=== PATIENT | male | born 1955 | race Caucasian/White ===

== ENCOUNTER 2018-01-12 14:29 | Outpatient (CLI) | payer MEDICARE ==
--- NOTE | 2018-01-12 21:10 | RAD ---
RIGHT RIBS 01/12/18 No fracture was appreciated on any of the films. The ribs appear intact. The adjacent lung is clear a nd fully inflated. No effusions are present. IMPRESSION: No acute bony findings. POS: HOME
== END 2018-01-12 14:30 | disposition home or self-care (01) ==
LOC: BURRAD 14:29
PROVIDERS: ATTEND Family Medicine
DX: R07.81 Pleurodynia (principal)

== ENCOUNTER 2020-11-18 16:15 | Emergency (ER) | payer MEDICARE ==
[2020-11-18 16:56] LABS: #Basophils 0.3 thou/uL (0.0-0.2); #Eosinphils 1.5 thou/uL (0.0-0.7); #Lymphocytes 1.9 thou/uL (1.20-3.40); #Monocytes 1.2 thou/uL (0.11-0.59); #Neutrophils 5.7 thou/uL (1.40-6.50); %Basophils 2.4 % (0.0-1.0); %Eosinophils 14.2 % (0.0-10.0); %Lymphocytes 18.2 % (21.0-51.0); %Monocytes 11.3 % (0.0-10.0); %Neutrophils 53.9 % (42.0-75.0); Hemoglobin 15.2 g/dL (14.0-18.0); Mean Corpuscular HGB CONC 31.9 g/dL (32.0-36.0); Mean Corpuscular Hemoglobin 30.9 pg (27.0-31.0); Platelet Count 213 thou/uL (130-400); RBC Distribution Width 12.8 % (11.5-14.5); Red Blood Cell (RBC) Count 4.92 mill/uL (4.70-6.10); White Blood Cell (WBC) Count 10.6 thou/uL (4.8-10.8)
[2020-11-18] MEDS ORDERED: Aspirin 325 MG TAB ONE (17:07)
[2020-11-18] MEDS ORDERED: Metoprolol Tartrate 5 MG/5 ML VIAL ONE (17:07)
[2020-11-18] MEDS ORDERED: Ketorolac Tromethamine 30 MG/ML VIAL ONE (17:08)
[2020-11-18 17:12] LABS: ALT (SGPT) 38 U/L (8-55); AST (SGOT) 55 U/L (5-34); Albumin 3.5 g/dL (3.4-4.8); Alkaline Phosphatase 68 U/L (40-110); Anion Gap 15 mmol/L (10-20); BUN (Urea Nitrogen) 21 mg/dL (8.4-25.7); Bilirubin, Total 1.2 mg/dL (0.2-1.2); Calc. Creatinine Clearance 0 mL/min (70-130); Calcium 8.8 mg/dL (7.8-10.44); Carbon Dioxide 22 mmol/L (23-31); Chloride 107 mmol/L (98-107); Globulin 3.4 g/dL (2.4-3.5); Potassium 3.8 mmol/L (3.5-5.1); Protein, Total 6.9 g/dL (5.8-8.1); Sodium 140 mmol/L (136-145)
[2020-11-18 17:16] LABS: Glucose 53 mg/dL (80-115)
[2020-11-18 17:30] LABS: CKMB 3.8 ng/mL (0-6.6)
== END 2020-11-18 17:50 | disposition left against medical advice (07) ==
LOC: BURERS 16:15
DX: S22.32XA Fracture of one rib, left side, initial encounter for closed fracture (principal); I48.91 Unspecified atrial fibrillation; I11.0 Hypertensive heart disease with heart failure; I50.9 Heart failure, unspecified; F17.210 Nicotine dependence, cigarettes, uncomplicated; J18.9 Pneumonia, unspecified organism; W19.XXXA Unspecified fall, initial encounter
CPT/HCPCS: 71045; 80053; 82553; 83880; 84484; 85025; 93005; 96374; 96375; J1885

== ENCOUNTER 2021-01-07 11:03 | Emergency (ER) | payer MEDICARE ==
[2021-01-07 11:50] LABS: #Basophils 0.1 thou/uL (0.0-0.2); #Eosinphils 0.9 thou/uL (0.0-0.7); #Lymphocytes 2.8 thou/uL (1.20-3.40); #Monocytes 0.8 thou/uL (0.11-0.59); #Neutrophils 6.8 thou/uL (1.40-6.50); %Basophils 1.1 % (0.0-1.0); %Eosinophils 8.2 % (0.0-10.0); %Lymphocytes 24.7 % (21.0-51.0); Hemoglobin 15.1 g/dL (14.0-18.0); Mean Corpuscular HGB CONC 32.8 g/dL (32.0-36.0); Mean Corpuscular Hemoglobin 30.9 pg (27.0-31.0); Mean Corpuscular Volume 94.1 fL (78.0-98.0); Mean Platelet Volume 7.2 fL (7.4-10.4); Platelet Count 329 thou/uL (130-400); RBC Distribution Width 13.2 % (11.5-14.5); White Blood Cell (WBC) Count 11.5 thou/uL (4.8-10.8)
[2021-01-07] MEDS ORDERED: Diltiazem 125 MG/25 ML ONE (12:00)
[2021-01-07 12:06] LABS: ALT (SGPT) 31 U/L (8-55); AST (SGOT) 40 U/L (5-34); Albumin 3.3 g/dL (3.4-4.8); Alkaline Phosphatase 72 U/L (40-110); Anion Gap 14 mmol/L (10-20); BUN (Urea Nitrogen) 20 mg/dL (8.4-25.7); Calc. Creatinine Clearance 0 mL/min (70-130); Carbon Dioxide 22 mmol/L (23-31); Chloride 105 mmol/L (98-107); Globulin 3.9 g/dL (2.4-3.5); Glucose 158 mg/dL (80-115); Potassium 3.6 mmol/L (3.5-5.1); Protein, Total 7.2 g/dL (5.8-8.1); Sodium 137 mmol/L (136-145)
[2021-01-07] MEDS ORDERED: Enoxaparin Sodium 100 MG/ML SYRINGE ONE (12:25)
[2021-01-07] MEDS ORDERED: Sulfameth/Trimethoprim DS 800-160mg TAB ONE (12:34)
[2021-01-07] MEDS ORDERED: Cephalexin 250 MG CAP ONE (12:34)
== END 2021-01-07 14:05 | disposition short-term general hospital (02) ==
LOC: BURERS 11:03
DX: I48.91 Unspecified atrial fibrillation (principal); I10 Essential (primary) hypertension; F17.210 Nicotine dependence, cigarettes, uncomplicated
CPT/HCPCS: 71045; 80053; 83605; 83880; 84484; 85025; 93005; 96372; 96374; J1650

== ENCOUNTER 2022-07-29 15:18 | Inpatient (IN) | payer MEDICARE ==
[2022-07-29] MEDS ORDERED: Bisacodyl 5 MG TAB PO PRN (15:47)
[2022-07-29] MEDS ORDERED: Senokot S 8.6-50 MG TAB PO PRN (15:47)
[2022-07-29] MEDS ORDERED: HYDROcodone/Acetaminophen 5/325 mg Tablet PO PRN (17:22)
[2022-07-29 17:35] VITALS: BMI 24.8
[2022-07-29] MEDS: hydrALAZINE 25 MG TAB PO SCH (21:37)
[2022-07-29] MEDS: Atorvastatin Calcium 40 MG TAB PO SCH (21:38)
[2022-07-29] MEDS: chlordiazePOXIDE HCl 25 MG CAP PO PRN (21:40)
[2022-07-30] MEDS: Acetaminophen 325 MG TAB PO PRN (03:57)
[2022-07-30] MEDS: hydrALAZINE 25 MG TAB PO SCH ×2 (08:36→22:00)
[2022-07-30] MEDS: Aspirin 81 mg Enteric Coated Tablet PO SCH (08:36)
[2022-07-30] MEDS: Digoxin 0.125 MG TAB PO SCH (08:36)
[2022-07-30] MEDS: chlordiazePOXIDE HCl 25 MG CAP PO PRN ×3 (08:37→22:12)
[2022-07-30] MEDS: Nicotine 21 MG PATCH TD SCH (08:37)
[2022-07-30] MEDS: Folic Acid 1 MG TAB PO SCH (08:38)
[2022-07-30] MEDS ORDERED: Non-Formulary Item 1 EACH (Aspirin [Vazalore] 81 MG Capsule) PO SCH (09:00)
[2022-07-30] MEDS ORDERED: Triamcinolone 0.1% Cream 15 GM TUBE TOP SCH (21:00)
[2022-07-30] MEDS: Atorvastatin Calcium 40 MG TAB PO SCH (22:00)
[2022-07-31 05:40] LABS: #Basophils 0.1 thou/uL (0.0-0.2); #Eosinphils 0.8 thou/uL (0.0-0.7); #Lymphocytes 3.6 thou/uL (1.20-3.40); #Monocytes 0.7 thou/uL (0.11-0.59); %Basophils 1.1 % (0.0-1.0); %Eosinophils 7.3 % (0.0-10.0); %Lymphocytes 31.8 % (21.0-51.0); %Neutrophils 53.9 % (42.0-75.0); Hemoglobin 17.7 g/dL (14.0-18.0); Mean Corpuscular HGB CONC 30.9 g/dL (32.0-36.0); Mean Corpuscular Hemoglobin 29.4 pg (27.0-31.0); Mean Corpuscular Volume 95.4 fl (78.0-98.0); Mean Platelet Volume 6.7 fL (7.4-10.4); Platelet Count 345 10x3/uL (130-400); RBC Distribution Width 12.5 % (11.5-14.5); Red Blood Cell (RBC) Count 6.01 mill/uL (4.70-6.10); White Blood Cell (WBC) Count 11.2 10x3/uL (4.8-10.8)
[2022-07-31 05:50] LABS: ALT (SGPT) 68 U/L (8-55); AST (SGOT) 66 U/L (5-34); Albumin 3.2 g/dL (3.4-4.8); Alkaline Phosphatase 73 U/L (40-110); Anion Gap 13 mmol/L (10-20); BUN (Urea Nitrogen) 27 mg/dL (8.4-25.7); Bilirubin, Total 0.6 mg/dL (0.2-1.2); Calc. Creatinine Clearance 82 mL/min (70-130); Calcium 9.1 mg/dL (7.8-10.44); Carbon Dioxide 21 mmol/L (23-31); Chloride 108 mmol/L (98-107); Estimated GFR 79; Globulin 3.6 g/dL (2.4-3.5); Glucose 81 mg/dL (80-115); Potassium 4.7 mmol/L (3.5-5.1); Protein, Total 6.8 g/dL (5.8-8.1); Sodium 137 mmol/L (136-145)
[2022-07-31] MEDS: Digoxin 0.125 MG TAB PO SCH (09:06)
[2022-07-31] MEDS: Aspirin 81 mg Enteric Coated Tablet PO SCH (09:07)
[2022-07-31] MEDS: Folic Acid 1 MG TAB PO SCH (09:07)
[2022-07-31] MEDS: hydrALAZINE 25 MG TAB PO SCH ×2 (09:07→21:38)
[2022-07-31] MEDS: chlordiazePOXIDE HCl 25 MG CAP PO PRN ×2 (09:07→21:39)
[2022-07-31] MEDS: Nicotine 21 MG PATCH TD SCH (09:08)
[2022-07-31] MEDS: Atorvastatin Calcium 40 MG TAB PO SCH (21:39)
[2022-08-01] MEDS: Digoxin 0.125 MG TAB PO SCH (09:23)
[2022-08-01] MEDS: chlordiazePOXIDE HCl 25 MG CAP PO PRN ×2 (09:23→20:39)
[2022-08-01] MEDS: Folic Acid 1 MG TAB PO SCH (09:24)
[2022-08-01] MEDS: hydrALAZINE 25 MG TAB PO SCH ×2 (09:24→20:39)
[2022-08-01] MEDS: Aspirin 81 mg Enteric Coated Tablet PO SCH (09:24)
[2022-08-01] MEDS: Acetaminophen 325 MG TAB PO PRN (09:24)
[2022-08-01] MEDS: Nicotine 21 MG PATCH TD SCH (09:25)
[2022-08-01] MEDS: Rivaroxaban 10 MG TAB PO SCH (16:16)
[2022-08-01] MEDS: Atorvastatin Calcium 40 MG TAB PO SCH (20:38)
[2022-08-02] MEDS: Digoxin 0.125 MG TAB PO SCH (09:37)
[2022-08-02] MEDS: chlordiazePOXIDE HCl 25 MG CAP PO PRN ×2 (09:37→20:45)
[2022-08-02] MEDS: Nicotine 21 MG PATCH TD SCH (09:37)
[2022-08-02] MEDS: hydrALAZINE 25 MG TAB PO SCH ×2 (09:38→20:44)
[2022-08-02] MEDS: Folic Acid 1 MG TAB PO SCH (09:38)
[2022-08-02] MEDS: Aspirin 81 mg Enteric Coated Tablet PO SCH (09:38)
[2022-08-02] MEDS: Acetaminophen 325 MG TAB PO PRN (17:51)
[2022-08-02] MEDS: Rivaroxaban 10 MG TAB PO SCH (17:51)
[2022-08-02] MEDS: Atorvastatin Calcium 40 MG TAB PO SCH (20:45)
[2022-08-03 05:34] LABS: ALT (SGPT) 69 U/L (8-55); AST (SGOT) 61 U/L (5-34); Albumin 2.9 g/dL (3.4-4.8); Alkaline Phosphatase 99 U/L (40-110); Anion Gap 11 mmol/L (10-20); BUN (Urea Nitrogen) 34 mg/dL (8.4-25.7); Bilirubin, Total 0.4 mg/dL (0.2-1.2); Calc. Creatinine Clearance 80 mL/min (70-130); Calcium 8.7 mg/dL (7.8-10.44); Carbon Dioxide 19 mmol/L (23-31); Chloride 113 mmol/L (98-107); Estimated GFR 77; Globulin 3.3 g/dL (2.4-3.5); Glucose 91 mg/dL (80-115); Potassium 4.3 mmol/L (3.5-5.1); Protein, Total 6.2 g/dL (5.8-8.1); Sodium 139 mmol/L (136-145)
[2022-08-03 05:41] LABS: Hemoglobin 17.2 g/dL (14.0-18.0); Mean Corpuscular HGB CONC 31.9 g/dL (32.0-36.0); Mean Corpuscular Hemoglobin 30.4 pg (27.0-31.0); Mean Corpuscular Volume 95.1 fl (78.0-98.0); Mean Platelet Volume 6.2 fL (7.4-10.4); Platelet Count 346 10x3/uL (130-400); RBC Distribution Width 12.6 % (11.5-14.5); Red Blood Cell (RBC) Count 5.68 mill/uL (4.70-6.10); White Blood Cell (WBC) Count 11.4 10x3/uL (4.8-10.8)
[2022-08-03 06:12] VITALS: TEMP 97.6
[2022-08-03 06:23] LABS: Band 1 % (5-11); Eosinophils 6 % (0-10); Large Platelets SLIGHT; Lymphocytes 33 % (21-51); MDiff Complete? YES; Monocytes 10 % (0-10); Neutrophil 50 % (42-75); Platelet Morphology Comment Appears Adequate; RBC Morphology Normal
[2022-08-03] MEDS: Acetaminophen 325 MG TAB PO PRN (08:50)
[2022-08-03] MEDS: hydrALAZINE 25 MG TAB PO SCH (08:51)
[2022-08-03] MEDS: Digoxin 0.125 MG TAB PO SCH (08:51)
[2022-08-03] MEDS: chlordiazePOXIDE HCl 25 MG CAP PO PRN ×2 (08:52→11:45)
[2022-08-03] MEDS: Aspirin 81 mg Enteric Coated Tablet PO SCH (08:52)
[2022-08-03] MEDS: Folic Acid 1 MG TAB PO SCH (08:52)
[2022-08-03 08:53] VITALS: BP 166/91
[2022-08-03] MEDS: Nicotine 21 MG PATCH TD SCH (08:53)
[2022-08-03] MEDS ORDERED: Thiamine 100 MG TAB PO SCH (09:00)
== END 2022-08-03 12:20 | disposition home or self-care (01) | DRG 56 ==
LOC: BURMED 15:18
PROVIDERS: ADMIT Family Medicine; ATTEND Family Medicine
DX: I69.398 Other sequelae of cerebral infarction (principal); G93.41 Metabolic encephalopathy; R53.1 Weakness; F17.210 Nicotine dependence, cigarettes, uncomplicated; I48.91 Unspecified atrial fibrillation; R53.81 Other malaise; D72.829 Elevated white blood cell count, unspecified; I10 Essential (primary) hypertension; J44.9 Chronic obstructive pulmonary disease, unspecified; R91.1 Solitary pulmonary nodule; F10.10 Alcohol abuse, uncomplicated; Z88.8 Allergy status to other drugs, medicaments and biological substances; Z79.82 Long term (current) use of aspirin; Z79.899 Other long term (current) drug therapy; Z98.890 Other specified postprocedural states; Z83.3 Family history of diabetes mellitus; Z90.81 Acquired absence of spleen
CPT/HCPCS: 36415; 80053; 85025

== ENCOUNTER 2024-11-25 14:39 | Emergency (ER) | payer MEDICARE ==
[2024-11-25] MEDS ORDERED: dilTIAZem 25 MG/5 ML VIAL ONE (15:16)
[2024-11-25 15:19] LABS: #Basophils 0.3 thou/uL (0.0-0.2); #Eosinophils 0.3 thou/uL (0.0-0.7); #Lymphocytes 2.9 thou/uL (1.20-3.40); #Monocytes 1.5 thou/uL (0.11-0.59); #Neutrophils 7.6 thou/uL (1.40-6.50); %Basophils 2.0 % (0.0-1.0); %Eosinophils 2.8 % (0.0-10.0); %Lymphocytes 23.4 % (21.0-51.0); %Monocytes 11.5 % (0.0-10.0); %Neutrophils 60.3 % (42.0-75.0); Hematocrit 44.9 % (42.0-52.0); Hemoglobin 16.1 g/dL (14.0-18.0); Mean Corpuscular Hemoglobin 32.0 pg (27.0-31.0); Mean Corpuscular Volume 89.2 fl (78.0-98.0); Platelet Count 318 10x3/uL (130-400); Red Blood Cell (RBC) Count 5.04 mill/uL (4.70-6.10); White Blood Cell (WBC) Count 12.5 10x3/uL (4.8-10.8)
[2024-11-25 15:31] LABS: Acetaminophen Less than 10 mcg/mL (Less than 10); Salicylate Less than 8.0 mg/dL (Less than 8.0)
[2024-11-25 15:33] LABS: ALT (SGPT) 52 U/L (Less than 45); AST (SGOT) 55 U/L (11-34); Albumin 3.5 g/dL (3.1-4.5); Alkaline Phosphatase 92 U/L (40-110); Anion Gap 19 mmol/L (10-20); BUN (Urea Nitrogen) 54 mg/dL (8.4-25.7); Bilirubin, Total 1.0 mg/dL (0.3-1.2); Calc. Creatinine Clearance 0 mL/min (70-130); Calcium 9.5 mg/dL (7.8-10.44); Carbon Dioxide 17 mmol/L (23-31); Chloride 107 mmol/L (98-107); Globulin 3.8 g/dL (2.4-3.5); Glucose 111 mg/dL (80-115); INR-International Normal Ratio 1.2; Potassium 4.3 mmol/L (3.5-5.1); Prothrombin Time 15.7 sec (12.0-14.7); Sodium 139 mmol/L (136-145)
[2024-11-25 15:34] LABS: PTT 33.5 sec (22.9-36.1); Troponin I 0.102 ng/mL (< 0.028)
== END 2024-11-25 17:41 | disposition short-term general hospital (02) ==
LOC: BURERS 14:39
DX: I48.20 Chronic atrial fibrillation, unspecified (principal); G89.21 Chronic pain due to trauma; M79.661 Pain in right lower leg; I10 Essential (primary) hypertension; F17.210 Nicotine dependence, cigarettes, uncomplicated; Z79.01 Long term (current) use of anticoagulants
CPT/HCPCS: 71045; 80053; 80307; 83880; 84484; 85025; 85610; 85730; 93005; 94760; 96365; 96366; 96376